=== PATIENT | female | born 1990 | race Two or more races ===

== ENCOUNTER 2022-05-25 07:39 | Inpatient (IN) | payer OTHER ==
[~2022-05-25] VITALS: Ht 170.2 cm; Wt 75.0 kg
[2022-05-25] VITALS (9 sets, daily range): BP systolic 93–113; BP diastolic 59–75
[~2022-05-25 07:39] MED LIST: IRON1TAB2 PO; MM S100C PO; PRENCHW PO; PRIL20TA2 PO; VITA100T59 PO
[2022-05-25] MEDS ORDERED: ACET-683 PO (07:57)
[2022-05-25] MEDS ORDERED: HOME MED LIST COMPLETE! XX SCH (08:00)
[2022-05-25] MEDS ORDERED: AZITHROMYCIN INJ 500 MG, VIAL MATE ADAPTER 1 EACH in NS 250 ML IV SCH (08:10)
[2022-05-25] MEDS ORDERED: BICITRA 30ML SOLN UDC PO ONE (08:10)
[2022-05-25] MEDS ORDERED: LR 1,000 ML IV ONE (08:10)
[2022-05-25] MEDS ORDERED: ceFAZolin SOD 2 GM in IV 1 EA IV ONE (08:10)
[2022-05-25] MEDS ORDERED: BUPIVACAINE HCL 0.25% 10ML VIAL SC ONE (08:10)
[2022-05-25] MEDS ORDERED: ACETAMINOPHEN 650 MG SUPP PR ONE (08:10)
[2022-05-25] MEDS: LR 1,000 ML IV SCH ×5 (08:13→20:11)
[2022-05-25 08:27] LABS: HEMATOCRIT 36.6 % (36.0-47.0); HEMOGLOBIN 11.8 g/dl (12.0-15.5); MEAN CORPUSCULAR HEMOGLOBIN 27.8 pg (27.0-33.0); MEAN CORPUSCULAR HGB CONC 32.2 g/dl (32.0-36.5); MEAN CORPUSCULAR VOLUME 86.1 fl (80.0-96.0); PLATELET COUNT, AUTOMATED 162 10^3/uL (150-450); RED BLOOD COUNT 4.25 10^6/uL (4.00-5.40); WHITE BLOOD COUNT 5.8 10^3/uL (4.0-10.0)
[2022-05-25] MEDS: PRENATAL VITAMINS CHEWABLE TABLET PO SCH (09:00)
[2022-05-25] MEDS ORDERED: ONDANSETRON 4MG 2ML VIAL As Ordered ONE (10:01)
[2022-05-25] MEDS ORDERED: OXYTOCIN INJ 10 UNITS/ML VIAL (J2590) As Ordered ONE (10:01)
[2022-05-25] MEDS ORDERED: PHENYLephrine 500MCG 5ML (100MCG/ML) SYRINGE As Ordered ONE ×2 (10:01→10:12)
[2022-05-25] MEDS ORDERED: MORPHINE PRES-FREE INJ 10 MG/10 ML VIAL As Ordered ONE (10:01)
[2022-05-25 10:41] LABS: CORD GAS ABE A -2.7; CORD GAS O2 SAT A 45.4 %; CORD GAS PCO2 A 48.9 mmHg; CORD GAS PH A 7.309 UNITS; CORD GAS TCO2 A 25.5 MEQ/L
[2022-05-25 10:44] LABS: CORD GAS ABE V -5.5; CORD GAS O2 SAT V 82.6 %; CORD GAS PCO2 V 39.5 mmHg; CORD GAS PH V 7.323 UNITS; CORD GAS PO2 V 37.4 mmHg; CORD GAS SBC V 19.6 MEQ/L; CORD GAS TCO2 V 21.2 MEQ/L
[2022-05-25] MEDS ORDERED: KETOROLAC 60MG 2ML VIAL As Ordered ONE (10:46)
[2022-05-25] MEDS ORDERED: diphenhydrAMINE 50MG/ML VIAL (J1200) IV PRN (11:05)
[2022-05-25] MEDS ORDERED: NALOXONE INJ 0.4MG/1ML VIAL (J2310 PER 1MG) IV PRN ×2 (11:05)
[2022-05-25] MEDS ORDERED: fentaNYL 100 MCG/2 ML INJECTION IV PRN (11:05)
[2022-05-25] MEDS ORDERED: oxyCODONE 5MG TAB PO PRN (11:05)
[2022-05-25] MEDS ORDERED: HYDROMORPHONE HCL 0.5 MG/ 0.5 ML SYRINGE (J1170 PER 1) IV PRN (11:05)
[2022-05-25] MEDS: SLF 3 ML SYR IV SCH ×2 (11:05→19:05)
[2022-05-25] MEDS ORDERED: METOCLOPRAMIDE INJ 10MG/2ML VIAL (J2765 PER 1) IV PRN (11:05)
[2022-05-25] MEDS ORDERED: ONDANSETRON 4MG 2ML VIAL IV PRN (11:05)
[2022-05-25] MEDS ORDERED: MEPERIDINE INJ 25 MG/ML VIAL (J2175) IV PRN (11:05)
[2022-05-25] MEDS ORDERED: **NOTE PATIENT COMMENT** MISC XX SCH (11:05)
[2022-05-25] MEDS ORDERED: OXYTOCIN INJ 10 UNITS/ML VIAL (J2590) IV ONE (11:10)
[2022-05-25] MEDS ORDERED: RHOGAM 300 MCG (1500 IU) INJ (J2790) IM SCH (11:10)
[2022-05-25] MEDS ORDERED: METHYLERGONOVINE MALEATE 0.2 MG/ML VIAL (J2210) IM PRN (11:10)
[2022-05-25] MEDS ORDERED: SIMETHICONE 80MG CHEW TAB PO PRN (11:10)
[2022-05-25] MEDS ORDERED: OXYTOCIN DRIP 30 UNITS in IV 1 EA IV SCH ×4 (11:10)
[2022-05-25] MEDS ORDERED: ACETAMINOPHEN 500 MG TAB PO PRN (11:10)
[2022-05-25] MEDS ORDERED: DOCUSATE SODIUM 100MG CAPSULE PO PRN (11:10)
[2022-05-25] MEDS ORDERED: ANUSOL HC CREAM 30GM TOP PRN (11:10)
[2022-05-25] MEDS ORDERED: METHYLERGONOVINE MALEATE 0.2 MG TAB PO PRN (11:10)
[2022-05-25] MEDS ORDERED: TRANEXAMIC ACID INJection 1,000 MG in NS 100 ML IV ONE (11:10)
[2022-05-25] MEDS ORDERED: ACETAMINOPHEN TAB 650MG DOSE (2X325MG) PO PRN (11:10)
[2022-05-25] MEDS ORDERED: MOM 30ML SUSPENSION UDC PO PRN (11:10)
[2022-05-25] MEDS ORDERED: OXYTOCIN 30 UNITS IN 0.9% NaCl 500ML IV BAG (J2590) As Ordered ONE (11:13)
[2022-05-25] MEDS: KETOROLAC 30 MG/ML 1ML VIAL IV SCH ×2 (17:13→23:20)
[2022-05-25] MEDS ORDERED: LR 500 ML IV ONE (18:15)
[2022-05-26] MEDS ORDERED: ONDANSETRON 4MG 2ML VIAL IV ONE (00:30)
[2022-05-26 02:00] VITALS: BP 106/63
[2022-05-26] MEDS: SLF 3 ML SYR IV SCH (03:05)
[2022-05-26] MEDS: LR 1,000 ML IV SCH ×3 (03:53→19:10)
[2022-05-26] MEDS: KETOROLAC 30 MG/ML 1ML VIAL IV SCH (05:33)
[2022-05-26 06:00] VITALS: BP 102/55
[2022-05-26 07:15] LABS: HEMATOCRIT 28.8 % (36.0-47.0); MEAN CORPUSCULAR HEMOGLOBIN 28.5 pg (27.0-33.0); MEAN CORPUSCULAR HGB CONC 32.6 g/dl (32.0-36.5); MEAN CORPUSCULAR VOLUME 87.3 fl (80.0-96.0); PLATELET COUNT, AUTOMATED 137 10^3/uL (150-450); WHITE BLOOD COUNT 5.8 10^3/uL (4.0-10.0)
[2022-05-26 07:21] LABS: HEMOGLOBIN 9.4 g/dl (12.0-15.5)
[2022-05-26 10:00] VITALS: BP 108/70
[2022-05-26] MEDS: PRENATAL VITAMINS CHEWABLE TABLET PO SCH (11:16)
[2022-05-26] MEDS: PERCOCET 5MG/325MG TAB PO PRN ×3 (11:16→22:49)
[2022-05-26 14:00] VITALS: BP 101/61
[2022-05-26 18:00] VITALS: BP 108/58
[2022-05-26 22:31] VITALS: BP 122/70
[2022-05-26] MEDS: IBUPROFEN 600MG TAB PO PRN (22:49)
[2022-05-27 02:23] VITALS: BP 113/76
[2022-05-27] MEDS: LR 1,000 ML IV SCH (03:10)
[2022-05-27] MEDS: IBUPROFEN 600MG TAB PO PRN (05:34)
[2022-05-27] MEDS: PERCOCET 5MG/325MG TAB PO PRN (05:36)
[2022-05-27 06:24] VITALS: BP 101/67
[2022-05-27] MEDS ORDERED: MEASLES,MUMPS,RUBELLA VACCINE INJ (MMR-II) (90707) SC.IMMUN ONE (09:00)
== END 2022-05-27 12:50 | disposition home or self-care (01) | DRG 773 ==
LOC: M LDI 07:39 → M OBS 12:37
PROVIDERS: ADMIT Obstetrics & Gynecology; ATTEND Obstetrics & Gynecology
PROC: 10D00Z1 Extraction of Products of Conception, Low, Open Approach (ICD-10-PCS; principal; 2022-05-25 09:30)
DX: O34.211 Maternal care for low transverse scar from previous cesarean delivery (principal); Z37.0 Single live birth; Z3A.39 39 weeks gestation of pregnancy